=== PATIENT | female | born 1950 | race Two or more races ===

== ENCOUNTER 2018-12-09 06:06 | Day surgery (SDC) | payer MEDICARE, OTHER ==
[2018-12-09] MEDS ORDERED: LIDOCAINE 2% (SDV) 5 ML INJ (07:51)
[2018-12-09] MEDS ORDERED: PROPOFOL 60 ML (07:51)
[2018-12-09] MEDS ORDERED: EPHEDrine SULFATE 50 MG/5 ML SYG IV (08:00)
[2018-12-09] MEDS ORDERED: LABETALOL HCL 20MG INJ IV (08:00)
[2018-12-09] MEDS ORDERED: DIPHENHYDRAMINE 50 MG INJ IV (08:00)
[2018-12-09] MEDS ORDERED: ALBUTEROL 0.083% (NEB) 2.5 MG/3 ML AMP HHN (08:00)
[2018-12-09] MEDS ORDERED: FENTAnyl 50 MCG/ML VIAL IV (08:00)
[2018-12-09] MEDS ORDERED: ONDANSETRON 4 MG INJ IV (08:00)
[2018-12-09] MEDS ORDERED: hydrALAzine 20 MG INJ IV (08:00)
== END 2018-12-09 12:25 | disposition home or self-care (01) ==
LOC: GIL 06:06
DX: R19.4 Change in bowel habit (principal); K64.8 Other hemorrhoids; D12.0 Benign neoplasm of cecum; K21.9 Gastro-esophageal reflux disease without esophagitis; E11.9 Type 2 diabetes mellitus without complications; I10 Essential (primary) hypertension; J45.909 Unspecified asthma, uncomplicated; E78.5 Hyperlipidemia, unspecified; Z79.84 Long term (current) use of oral hypoglycemic drugs
CPT/HCPCS: 43239; 82962; 88305